=== PATIENT | male | born 1965 | race Caucasian/White ===

== ENCOUNTER 2017-05-16 22:07 | Emergency (ER) | payer OTHER ==
--- NOTE | 2017-05-16 23:44 | ED NURSING NOTES ---
Clinical Report - Nurses [facility] [address] [place] [address] 05/16/2017 22:07 Patient: IZABELLA VASQUEZ TRIAGE Triage time 22:42 May 16 2017. Acuity: LEVEL 3. Chief Complaint: BACK PAIN. Alert. No acute distress. ALLIE COMA SCORE: [place] Coma Scale: 15- eyes open spontaneously (4); best verbal response- oriented x 4 (5); best motor response- obeys commands (6). --22:51 Lisette Still R.N. 22:42 05/16/17. BP: 137/96. HR: 66. RR: 16. O2 saturation: 98%. Temp: 98.2 F. Pain level now: 06/06. --22:51 Lisette Still R.N. Weight: 81.6 kg stated. Height/Length: 66 inches Per Patient. BMI: 29. --22:48 Lisette Still R.N. Medications Cyclobenzaprine HCl Oral (Tablet 5 mg) 1 tablet, 3x a day. --22:46 Lisette Still R.N. FLUoxetine HCl Oral (Capsule 40 mg) 1 capsule, daily. --22:46 Lisette Still R.N. Naproxen Oral (Tablet 500 mg) 1 tablet, 2x a day. --22:47 Lisette Still R.N. ProAir HFA Inhalation 2 puffs, 4x a day. --22:47 Lisette Still R.N. Allergies morphine. --22:47 Lisette Still R.N. History Arrived by private vehicle. Historian: family. Accompanied by family and daughter. Onset. (about 3 days). He has had fever and trouble walking. No history of recent trauma. ( nausea). PAST MEDICAL HX: Tetanus status: up-to-date. Immunizations: up-to-date. SOCIAL HX: Never smoker. No alcohol use or drug use. No infectious disease exposure. SELF HARM ASSESSMENT: A self harm assessment was performed. The patient answered "no" to the question "Do you have thoughts of harming or killing yourself?" and "Have you recently had thoughts about harming or killing others?". FALL RISK ASSESSMENT: Fall risk assessment completed. No fall risk identified. NUTRITIONAL RISK ASSESSMENT: The nutritional risk assessment revealed no deficiencies. FUNCTIONAL ASSESSMENT: Functional assessment: no impairments noted. LEARNING NEEDS ASSESSMENT: The learning needs assessment revealed no barriers. ABUSE ASSESSMENT: Abuse assessment: The patient was asked "Do you feel safe in your home?". SKIN INTEGRITY ASSESSMENT: Skin integrity risk assessment completed. No skin integrity risk identified. --22:51 Lisette Still R.N. PROBLEMS: Intervertebral Disc Disease. Gastroenteritis. Abdominal Pain. Diarrhea. Prostatitis. Hernia. Sciatica. Back Injury. Asthma. Bronchitis. Dysuria. Pneumonia. Bronchospasm. Depression. Back Pain. Tetanus Status. Immunizations. --22:48 Lisette Still R.N. Lumbar Radiculopathy [RuleOut]. --22:48 Lisette Still R.N. ADDITIONAL SURGERIES: None. --22:48 Lisette Still R.N. Interventions ID band on patient. To room. --22:51 Lisette Still R.N. PHYSICAL ASSESSMENT Ambulatory to room. Patient gowned. GENERAL / NEURO / PSYCH: Alert. Oriented X 4. Appears in pain. RESPIRATORY: Respirations not labored. CVS: Capillary refill less than 2 seconds. GI / : Abdomen soft and nontender. EXTREMITIES: Sensation intact in extremities. BACK: Limited ROM. Vertebral point tenderness. Soft tissue tenderness. --22:52 Lisette Still R.N. NURSING PROGRESS NOTES Patient gowned. Head of bed elevated. Patient identifiers checked. Call light placed in reach. Bed placed in lowest position. Brakes of bed on. --22:52 Lisette Still R.N. Care transferred and report received (received from Lisette FUNEZ assumed care of pt). --23:10 Cyndee Dykes R.N. Care transferred and report given (Cyndee FUNEZ). --23:14 Lisette Still R.N. DISPOSITION / DISCHARGE Departure time: 2348. Condition at departure: unchanged and stable. No learning barriers present. Discharge instructions provided and reviewed with the patient and family. Reviewed medication(s) side effects, precautions, dosing and course information. Prescription(s) given to the patient. Patient and family verbalized understanding. Written instructions provided in Chinese. The patient was discharged home and accompanied by family. He left the Emergency Department ambulatory and via private vehicle. Family member driving. --23:54 Cyndee Dykes R.N. 23:45 05/16/17. BP: 131/97 taken on the left arm, while lying. HR: 67 (regular and normal rate). RR: 18 (regular and unlabored). O2 saturation: 97% on room air. Temp: deferred. Pain level now: 06/06. --23:54 Cyndee Dykes R.N. Locked/Released at 05/16/2017 23:54 by Cyndee Dykes R.N.
--- NOTE | 2017-05-16 23:44 | ED CLINICAL REPORT ---
Clinical Report - Physicians/Mid Levels [facility] [address] [place] [address] 05/16/2017 22:07 Patient: IZABELLA VASQUEZ Time Seen: 23:36 Robert 2016. Historian- patient. CPT: ER phys charges level 3 (#[id number]). HISTORY OF PRESENT ILLNESS Chief Complaint: BACK PAIN. Onset- about 3 days MANAGER RESIDENTIAL; Onset. (about 3 days). He has had fever and trouble walking. No history of recent trauma. ( nausea). and it is still present. It is described as being moderate in degree and in the area of the lower lumbar spine. The quality is noted to be aching, "pain" and similar to prior episodes. No bladder dysfunction, bowel dysfunction, sensory loss or motor loss. Patient denies an injury. No other injury. Similar symptoms previously: Recent medical care: Not recently seen/assessed. REVIEW OF SYSTEMS The patient has had fever. No chills, difficulty with urination, urinary frequency, skin rash or sore throat. No cough, difficulty breathing, chest pain, abdominal pain or nausea. No vomiting or diarrhea. All systems otherwise negative, except as recorded above. PAST HISTORY Has had back injury. He has had prior back pain. Intervertebral Disc Disease. Gastroenteritis. Abdominal Pain. Diarrhea. Prostatitis. Hernia. Sciatica. Back Injury. Asthma. Bronchitis. Dysuria. Pneumonia. Bronchospasm. Depression. Back Pain. Tetanus Status. Immunizations. - Lumbar Radiculopathy [RuleOut]. Medications: ProAir HFA Inhalation 2 puffs, 4x a day. Naproxen Oral (Tablet 500 mg) 1 tablet, 2x a day. FLUoxetine HCl Oral (Capsule 40 mg) 1 capsule, daily. Cyclobenzaprine HCl Oral (Tablet 5 mg) 1 tablet, 3x a day. Allergies: morphine. SOCIAL HISTORY Never smoker. No alcohol use or drug use. ADDITIONAL NOTES The nursing notes have been reviewed. PHYSICAL EXAM Vital Signs: 05/16/2017 22:42 BP: 137/96. HR: 66. RR: 16. O2 saturation: 98%. Temp: 98.2 F. Pain level now: 7/10. Appearance: Alert. Appears to be in pain. Patient in moderate distress. HEENT: Normal external inspection. ENT: Pharynx normal. Neck: Normal inspection. Neck nontender. Painless ROM. CVS: Heart sounds normal. Pulses normal. Respiratory: No respiratory distress. Breath sounds normal. Abdomen: Soft and nontender. Bowel sounds normal. Back: Normal inspection. Muscle spasm of the back. Moderate soft tissue tenderness in the right lower and left lower lumbar area. Limited ROM in the back. No vertebral point tenderness or CVA tenderness. Skin: Skin warm. Normal skin color. No rash. Extremities: Extremities exhibit normal ROM. Extremities nontender. Neuro: Oriented X 3. Mood/affect normal. No motor deficit. No sensory deficit. Reflexes normal. PROGRESS AND PROCEDURES Course of Care: Pt has the same back pain that he has chronically with an acute exacerbation. Nothing is new or different about the pain. He gets spontaneous spells like this about twice a year. Pt reports fever to the RN but further questioning reveals that he just felt hot. There was no temperature taken. There is no evidence of fever in the ER and it appears unlikely that he has no infectious reason for his back pain. Patient/family counseled. Disposition: Discharged. Condition: stable. CLINICAL IMPRESSION Acute and chronic lumbar back pain associated with degenerative joint disease of the lumbar spine; degenerative disc disease of the lumbar spine. No radiculopathy or neurological deficit. INSTRUCTIONS Limit lifting. No strenuous activity. Your Current Medications: CONTINUE TAKING THE FOLLOWING MEDICATIONS: Cyclobenzaprine HCl Oral : Tablet 5 mg, 1 tablet 3x a day. FLUoxetine HCl Oral : Capsule 40 mg, 1 capsule daily. Naproxen Oral : Tablet 500 mg, 1 tablet 2x a day. ProAir HFA Inhalation : 2 puffs 4x a day. Prescription Medications: Hydrocodone/APAP 5mg/325mg: take 1 to 2 orally every 6 hours as needed for pain. Dispense fifteen (15). No refills. Follow-up: Follow up with your doctor tomorrow as scheduled. Understanding of the discharge instructions verbalized by patient. (Electronically signed by Andres Mauricio MD 05/18/2017 9:04)
--- NOTE | 2017-05-16 23:44 | ED CLINICAL REPORT ---
Clinical Report - Physicians/Mid Levels [facility] [address] [place] [address] 05/16/2017 22:07 Patient: IZABELLA VASQUEZ Time Seen: 23:36 Robert 2016. Historian- patient. CPT: ER phys charges level 3 (#[id number]). HISTORY OF PRESENT ILLNESS Chief Complaint: BACK PAIN. Onset- about 3 days INVESTIGATIVE SHOPPER; Onset. (about 3 days). He has had fever and trouble walking. No history of recent trauma. ( nausea). and it is still present. It is described as being moderate in degree and in the area of the lower lumbar spine. The quality is noted to be aching, "pain" and similar to prior episodes. No bladder dysfunction, bowel dysfunction, sensory loss or motor loss. Patient denies an injury. No other injury. Similar symptoms previously: Recent medical care: Not recently seen/assessed. REVIEW OF SYSTEMS The patient has had fever. No chills, difficulty with urination, urinary frequency, skin rash or sore throat. No cough, difficulty breathing, chest pain, abdominal pain or nausea. No vomiting or diarrhea. All systems otherwise negative, except as recorded above. PAST HISTORY Has had back injury. He has had prior back pain. Intervertebral Disc Disease. Gastroenteritis. Abdominal Pain. Diarrhea. Prostatitis. Hernia. Sciatica. Back Injury. Asthma. Bronchitis. Dysuria. Pneumonia. Bronchospasm. Depression. Back Pain. Tetanus Status. Immunizations. - Lumbar Radiculopathy [RuleOut]. Medications: ProAir HFA Inhalation 2 puffs, 4x a day. Naproxen Oral (Tablet 500 mg) 1 tablet, 2x a day. FLUoxetine HCl Oral (Capsule 40 mg) 1 capsule, daily. Cyclobenzaprine HCl Oral (Tablet 5 mg) 1 tablet, 3x a day. Allergies: morphine. SOCIAL HISTORY Never smoker. No alcohol use or drug use. ADDITIONAL NOTES The nursing notes have been reviewed. PHYSICAL EXAM Vital Signs: 05/16/2017 22:42 BP: 137/96. HR: 66. RR: 16. O2 saturation: 98%. Temp: 98.2 F. Pain level now: 7/10. Appearance: Alert. Appears to be in pain. Patient in moderate distress. HEENT: Normal external inspection. ENT: Pharynx normal. Neck: Normal inspection. Neck nontender. Painless ROM. CVS: Heart sounds normal. Pulses normal. Respiratory: No respiratory distress. Breath sounds normal. Abdomen: Soft and nontender. Bowel sounds normal. Back: Normal inspection. Muscle spasm of the back. Moderate soft tissue tenderness in the right lower and left lower lumbar area. Limited ROM in the back. No vertebral point tenderness or CVA tenderness. Skin: Skin warm. Normal skin color. No rash. Extremities: Extremities exhibit normal ROM. Extremities nontender. Neuro: Oriented X 3. Mood/affect normal. No motor deficit. No sensory deficit. Reflexes normal. PROGRESS AND PROCEDURES Course of Care: Pt has the same back pain that he has chronically with an acute exacerbation. Nothing is new or different about the pain. He gets spontaneous spells like this about twice a year. Pt reports fever to the RN but further questioning reveals that he just felt hot. There was no temperature taken. There is no evidence of fever in the ER and it appears unlikely that he has no infectious reason for his back pain. Patient/family counseled. Disposition: Discharged. Condition: stable. CLINICAL IMPRESSION Acute and chronic lumbar back pain associated with degenerative joint disease of the lumbar spine; degenerative disc disease of the lumbar spine. No radiculopathy or neurological deficit. INSTRUCTIONS Limit lifting. No strenuous activity. Your Current Medications: CONTINUE TAKING THE FOLLOWING MEDICATIONS: Cyclobenzaprine HCl Oral : Tablet 5 mg, 1 tablet 3x a day. FLUoxetine HCl Oral : Capsule 40 mg, 1 capsule daily. Naproxen Oral : Tablet 500 mg, 1 tablet 2x a day. ProAir HFA Inhalation : 2 puffs 4x a day. Prescription Medications: Hydrocodone/APAP 5mg/325mg: take 1 to 2 orally every 6 hours as needed for pain. Dispense fifteen (15). No refills. Follow-up: Follow up with your doctor tomorrow as scheduled. Understanding of the discharge instructions verbalized by patient. (Electronically signed by Andres Mauricio MD 05/18/2017 9:04)
--- NOTE | 2017-05-18 09:05 | ED MED RECONCILIATION SUMMARY ---
Patient: JAMISON VASQUEZODORO Medication Reconciliation Report [facility] VisitID: [id number] [address] [place] [place] [address] 52y, M Registration Date/Time: 05/16/2017 Weight: 81.6 kg Height/Length: 66 in. BMI: 29.0 ALLERGIES: morphine The patient's Home Medications are listed below: CONTINUE TAKING THE FOLLOWING MEDICATIONS: Cyclobenzaprine HCl Oral (5 mg) 1 tablet, 3x a day FLUoxetine HCl Oral (40 mg) 1 capsule, daily Naproxen Oral (500 mg) 1 tablet, 2x a day ProAir HFA Inhalation 2 puffs, 4x a day The source(s) of the original Home Medication information: Not obtained. The following Medications were given to the patient in the Emergency Department: None. The following Medications were prescribed to the patient: Hydrocodone/APAP 5mg/325mg: take 1 to 2 orally every 6 hours as needed for pain. Dispense fifteen (15). No refills. -- Andres Mauricio MD
--- NOTE | 2017-05-18 09:05 | ED MAR SUMMARY ---
..... Medication Administration Record [facility] [address] [place], [place] [id number] Patient: IZABELLA VASQUEZ Visit ID: [id number] 52y, M Weight: 81.6 kg Height/Length: 66 in BMI: 29 ALLERGIES: morphine
--- NOTE | 2017-05-18 09:05 | ED MAR SUMMARY ---
..... Medication Administration Record [facility] [address] [place], [place] [id number] Patient: IZABELLA VASQUEZ Visit ID: [id number] 52y, M Weight: 81.6 kg Height/Length: 66 in BMI: 29 ALLERGIES: morphine
--- NOTE | 2017-05-18 09:05 | ED DISCHARGE INSTRUCTIONS ---
Patient: IZABELLA VASQUEZ General Instructions [facility] VisitID: [id number] [place] [address] 52y, M Registration Date/Time: 05/16/2017 Acute and chronic lumbar back pain associated with degenerative joint disease of the lumbar spine; degenerative disc disease of the lumbar spine. No radiculopathy or neurological deficit. INSTRUCTIONS Limit lifting. No strenuous activity. Your Current Medications: CONTINUE TAKING THE FOLLOWING MEDICATIONS: Cyclobenzaprine HCl Oral : Tablet 5 mg, 1 tablet 3x a day. FLUoxetine HCl Oral : Capsule 40 mg, 1 capsule daily. Naproxen Oral : Tablet 500 mg, 1 tablet 2x a day. ProAir HFA Inhalation : 2 puffs 4x a day. Prescription Medications: Hydrocodone/APAP 5mg/325mg: take 1 to 2 orally every 6 hours as needed for pain. Dispense fifteen (15). No refills. Follow-up: Follow up with your doctor tomorrow as scheduled. Understanding of the discharge instructions verbalized by patient. ADDITIONAL INFORMATION Back Pain [Acute Or Chronic] Back pain is usually caused by an injury to the muscles or ligaments of the spine. Sometimes the disks that separate each bone in the spine may bulge and cause pain by pressing on a nearby nerve. Back pain may also appear after a sudden twisting/bending force (such as in a car accident), after a simple awkward movement, or lifting something heavy with poor body positioning. In either case, muscle spasm is often present and adds to the pain. Acute back pain usually gets better in one to two weeks. Back pain related to disk disease, arthritis in the spinal joints or spinal stenosis (narrowing of the spinal canal) can become chronic and last for months or years. Unless you had a physical injury (for example, a car accident or fall) X-rays are usually not ordered for the initial evaluation of back pain. If pain continues and does not respond to medical treatment, x-rays and other tests may be performed at a later time. Home Care: You may need to stay in bed the first few days. But, as soon as possible, begin sitting or walking to avoid problems with prolonged bed rest (muscle weakness, worsening back stiffness and pain, blood clots in the legs). When in bed, try to find a position of comfort. A firm mattress is best. Try lying flat on your back with pillows under your knees. You can also try lying on your side with your knees bent up towards your chest and a pillow between your knees. Avoid prolonged sitting. This puts more stress on the lower back than standing or walking. During the first two days after injury, apply an ICE PACK to the painful area for 20 minutes every 2-4 hours. This will reduce swelling and pain. HEAT (hot shower, hot bath or heating pad) works well for muscle spasm. You can start with ice, then switch to heat after two days. Some patients feel best alternating ice and heat treatments. Use the one method that feels the best to you. You may use acetaminophen (Tylenol) or ibuprofen (Motrin, Advil) to control pain, unless another pain medicine was prescribed. [NOTE: If you have chronic liver or kidney disease or ever had a stomach ulcer or GI bleeding, talk with your doctor before using these medicines.] Be aware of safe lifting methods and do not lift anything over 15 pounds until all the pain is gone. Follow Up with your doctor or this facility if your symptoms do not start to improve after one week. Physical therapy may be needed. [NOTE: If X-rays were taken, they will be reviewed by a radiologist. You will be notified of any new findings that may affect your care.] Get Prompt Medical Attention if any of the following occur: Pain becomes worse or spreads to your legs Weakness or numbness in one or both legs Loss of bowel or bladder control Numbness in the groin or genital area You have been given the following additional information: Back Pain (Acute Or Chronic) Limit lifting. No strenuous activity. (Electronically signed by Andres Mauricio MD 05/18/2017 9:04)
--- NOTE | 2017-05-18 09:05 | ED MED RECONCILIATION SUMMARY ---
Patient: JAMISON VASQUEZODORO Medication Reconciliation Report [facility] VisitID: [id number] [address] [place] [address] 52y, M Registration Date/Time: 05/16/2017 Weight: 81.6 kg Height/Length: 66 in. BMI: 29.0 ALLERGIES: morphine The patient's Home Medications are listed below: CONTINUE TAKING THE FOLLOWING MEDICATIONS: Cyclobenzaprine HCl Oral (5 mg) 1 tablet, 3x a day FLUoxetine HCl Oral (40 mg) 1 capsule, daily Naproxen Oral (500 mg) 1 tablet, 2x a day ProAir HFA Inhalation 2 puffs, 4x a day The source(s) of the original Home Medication information: Not obtained. The following Medications were given to the patient in the Emergency Department: None. The following Medications were prescribed to the patient: Hydrocodone/APAP 5mg/325mg: take 1 to 2 orally every 6 hours as needed for pain. Dispense fifteen (15). No refills. -- Andres Mauricio MD
== END 2017-05-16 23:49 | disposition home or self-care (01) ==
LOC: ED SRH 22:07
DX: M51.27 Other intervertebral disc displacement, lumbosacral region (principal); M54.5 Low back pain; G89.29 Other chronic pain; J45.909 Unspecified asthma, uncomplicated; Z79.51 Long term (current) use of inhaled steroids; Z79.899 Other long term (current) drug therapy; Z88.5 Allergy status to narcotic agent

== ENCOUNTER 2017-06-07 09:57 | Outpatient (CLI) | payer OTHER ==
--- NOTE | 2017-06-07 11:20 | DIAGNOSTIC IMAGING REPORT ---
PROCEDURE: MR LUMBAR SPINE W/O CONTRAST INDICATION: CHRONIC BILAT BACK PAIN W/SCIATIC PRESENCE UNSPECIFIED TECHNIQUE: Noncontrast T1, T2, and STIR sagittal images. T1 and T2 axial images. COMPARISON: Lumbar spine MRI dated 09/20/2015 FINDINGS: Normal alignment without fracture or suspicious osseous lesions. Minor spur formation. Normal conus. L1-2: Normal L2-3: Normal L3-4: Minor bilateral foraminal disc bulging with mild right foraminal stenosis. No spinal stenosis. L4-5: Normal L5-S1: Desiccation of the disc and with a small broad-based left foraminal disc protrusion/spur complex with mild left foraminal stenosis. Mild facet arthropathy. No spinal stenosis. IMPRESSION: 1. Mild degenerative changes 2. L3-4 mild disc bulge with mild right foraminal stenosis 3. L5-S1 left foraminal disc protrusion with mild left foraminal stenosis
== END 2017-06-07 23:00 ==
LOC: MRI SRH 09:57
DX: M51.26 Other intervertebral disc displacement, lumbar region (principal); M51.27 Other intervertebral disc displacement, lumbosacral region